=== PATIENT | male | born 1970 | race Caucasian/White ===

== ENCOUNTER 2016-10-19 08:15 | Outpatient (CLI) | payer OTHER ==
[~2016-10-19 08:15] MED LIST: AMBIEN5 MG PO; BUSPIRONE HCL10 MG PO; BUSPIRONE HCL5 MG PO; CATAPRES0.2 MG PO; CELEXA20 MG PO; CITALOPRAM HYDR40 MG PO; ESCITALOPRAM OX10 MG PO; LISINOPRIL10 MG PO; LOPRESSOR50 MG PO; LOVASTATIN10 MG PO; METOPROLOL SUC100 MG PO; NEURONTIN100 MG PO; NEURONTIN300 MG PO; OMEPRAZOLE20 M1; PRAVACHOL20 MG PO; PRENATABS RX PO; PRILOSEC20 MG PO; SEROQUEL100 MG PO; TOPROL XL50 MG PO; TRAZODONE HCL50 MG PO; ULTRAM EQIVALEN50 MG PO; VITAMIN B-1 PO; XANAX0.5 MG PO
== END 2016-10-19 23:00 ==
LOC: LAB SRH 08:15
DX: R89.9 Unspecified abnormal finding in specimens from other organs, systems and tissues (principal)
CPT/HCPCS: 90074; 93146